=== PATIENT | male | born 1985 | race Caucasian/White ===

== ENCOUNTER 2022-02-21 10:48 | Emergency (ER) | payer SELFPAY ==
[2022-02-21 11:07] VITALS: BP 136/84; PULSE 83; RESP 16; TEMP 36.9; O2SAT 98
[2022-02-21 12:29] LABS: Influenza A QL RT-PCR Positive (Negative); Influenza B QL RT-PCR Negative (Negative); SARS-CoV-2 RNA PCR Negative (Negative)
[2022-02-21 12:51] LABS: Strep Group A RT-PCR Not Detected (Negative)
--- NOTE | 2022-02-21 12:57 | ED.URI ---
HPI - URI/Sore Throat General Chief Complaint: Upper Respiratory Infection Stated Complaint: Fever/cough/body aches Time Seen by Provider: 02/21/22 10:50 Source: patient and RN notes reviewed History of Present Illness MD elicited complaint: cough, sore throat and nasal congestion Onset (ago): day(s) (2) Consistency: progressively worsening Severity: moderate Pain scale (0-10): 4 Able to tolerate fluids by mouth: Yes Exacerbating factors: nothing Relieving factors: cough suppressant Associated symptoms: nasal congestion and sore throat Treatments prior to arrival: acetaminophen and cold medicine Related Data Allergies Allergy/AdvReac Type Severity Reaction Status Date / Time No Known Allergies Allergy Verified 02/21/22 11:17 Review of Systems Review of Systems: All systems reviewed & are unremarkable except as noted in HPI and below Constitutional: Constitutional: Reports no additional constitutional complaints Eyes: Eyes: Reports no additional eye complaints ENT: Reports system reviewed and no additional complaints, except as documented Cardiovascular: Cardiovascular: Reports no additional cardiovascular complaints Respiratory: Respiratory: Reports no additional respiratory complaints Gastrointestinal: Gastrointestinal: Reports no additional gastrointestinal complaints Musculoskeletal: Musculoskeletal: Reports no additional musculoskeletal complaints Integumentary/Breasts: Skin/Breast: Reports system reviewed and no additional complaints, except as docu Neurologic: Reports system reviewed and no additional complaints, except as documented Psychiatric: Psychiatric: Reports no additional psychiatric complaints Endocrine: Endocrine: Reports no additional endocrine complaints Hematologic/Lymphatic: Hematologic/Lymphatic: Reports no additional hematologic/lymphatic complaints Allergic/Immunologic: Allergic/Immunologic: Reports no additional allergic/immunologic complaints PMFSH Past Medical History Medical History Influenza Pharyngitis Exam Const: General: no acute distress and well nourished Nutritional Appearance: well nourished Orientation/consciousness: patient oriented x3 Limitations: no limitations HENMT: Head: normal to inspection Ears: external ears normal, TM's normal bilaterally and EAC's normal Face/Nose/Sinus: Normal external nose present, Normal nares present, normal facial exam and sinuses nontender Face and sinus: normal facial exam and sinuses nontender Mouth: Yes Normal oral and palatal mucosa present and Yes moist mucous membranes Teeth and gingiva: dentition normal Other: mild pharyngeal redness Eyes: Conjunctivae: conjunctivae normal Pupils: Equal, round and reactive pupils present EOM: EOMs intact bilaterally Neck: Neck: normal visual inspection, no lymphadenopathy and no meningeal signs Chest: Chest palpation & inspection: normal inspection of the chest Resp: Effort & Inspection: normal respiratory effort Auscultation: clear to auscultation bilaterally Cardio: Rate: regular rate Rhythm: regular rhythm GI: GI Palp: Yes Soft to palpation and No Tenderness to palpation present (GI) Auscultation: normal bowel sounds : General: Yes bladder normal to palpation and Yes no CVA tenderness Back/Spine/Pelvis: Back: no CVA tenderness Skin: General skin exam: normal color Rashes: no rashes Wounds: no wounds Neuro: General: patient oriented x3, moves all extremities, no meningeal signs, no focal motor deficits and CN's II-XI intact bilaterally Cranial nerves: Yes Equal, round and reactive pupils present and Yes Nystagmus not present Speech: normal speech Gait exam (Neuro): Normal gait present Extrem: General: normal to inspection and no pedal edema Psych: Mental Status: mental status grossly normal Affect: normal affect Attitude: cooperative Course Course Emergency Course: stable, less painful. Reevalua
--- NOTE | 2022-02-21 13:11 | PC.NURSE ---
patient states he has already had mucinex this morning, does not need.
[2022-02-21] MEDS: ACETAMINOPHEN 325 MG TABLET 650 MG PO (13:16)
[2022-02-21 13:19] VITALS: BP 138/79; PULSE 81; RESP 17; TEMP 37.2; O2SAT 99
--- NOTE | 2022-02-21 14:54 | PC.NURSE ---
Alyce from [facility] called to get verbal for [facility]romycinS[facility]har in [place] is closed.
--- NOTE | 2022-02-21 16:21 | PC.NURSE ---
[facility] [place] for [facility].
== END 2022-02-21 13:27 | disposition home or self-care (01) ==
PROVIDERS: Emergency Provider Emergency Medicine
DX: J11.1 Influenza due to unidentified influenza virus with other respiratory manifestations (principal); Z20.822 Contact with and (suspected) exposure to COVID-19
CPT/HCPCS: 87636; 87651; 99283; A9270